=== PATIENT | male | born 1940 | race Two or more races ===

== ENCOUNTER 2016-05-14 09:39 | Inpatient (IN) | payer MEDICARE, OTHER ==
[~2016-05-14] VITALS: Ht 180.3 cm; Wt 78.1 kg
[2016-05-14] MEDS ORDERED: SODIUM CHLORIDE 0.9% 1,000ML IVBOLUS ONE (10:30)
[2016-05-14] MEDS ORDERED: SODIUM CHLORIDE FLUSH 10ML SYR IVF ONE (10:30)
[2016-05-14 11:06] LABS: HEMOGLOBIN 13.9 g/dL (13.7-18.0)
[2016-05-14 11:17] LABS: ASPARTATE AMINO TRANSFERASE 20 U/L (15-37); BLOOD UREA NITROGEN 17 mg/dL (7-18)
[2016-05-14] MEDS ORDERED: OMNIPAQUE 350 MG/ML, 100ML BOTTLE ONE (11:42)
[2016-05-14] MEDS ORDERED: MORPHINE SULFATE 4 MG/ML, 1ML IVPush PRN (16:00)
[2016-05-14] MEDS ORDERED: ONDANSETRON ODT 4 MG PO PRN (16:00)
[2016-05-14] MEDS ORDERED: ACETAMINOPHEN 325 MG TABLET PO PRN (16:00)
[2016-05-14] MEDS ORDERED: ONDANSETRON 2MG/ML, 2ML IVP PRN (16:00)
[2016-05-14] MEDS ORDERED: CEFTRIAXONE PMX 1GM/50ML 50 ML ONE (16:11)
[2016-05-14] MEDS: CEFTRIAXONE PMX 1GM/50ML 50 ML IV ONE ×2 (16:23→16:57)
[2016-05-14] MEDS: LISINOPRIL 5 MG TABLET PO SCH (16:30)
[2016-05-14] MEDS ORDERED: GOLYTELY 4,000ML ORAL.SOL PO ONE (17:30)
[2016-05-14 19:02] VITALS: BP 130/86
[2016-05-14] MEDS: SODIUM CHLORIDE 0.9% 1,000 ML IV SCH (19:52)
[2016-05-14 20:00] VITALS: BP 130/86
[2016-05-14] MEDS: PANTOPRAZOLE 40 MG IV IVP SCH (20:25)
[2016-05-14 23:17] LABS: IS PT STATUS REG ER OR PRE ER? NO
[2016-05-15 00:38] VITALS: BP 94/68
[2016-05-15 03:15] VITALS: BP 116/76
[2016-05-15 04:51] LABS: HEMOGLOBIN 10.6 g/dL (13.7-18.0)
[2016-05-15 04:58] LABS: BLOOD UREA NITROGEN 12 mg/dL (7-18)
[2016-05-15 05:16] LABS: IS PT STATUS REG ER OR PRE ER? NO
[2016-05-15 06:48] VITALS: BP 130/78
[2016-05-15] MEDS: LISINOPRIL 5 MG TABLET PO SCH (08:29)
[2016-05-15] MEDS: FINASTERIDE 5 MG TABLET PO SCH (08:29)
[2016-05-15] MEDS: PANTOPRAZOLE 40 MG IV IVP SCH ×2 (08:30→17:50)
[2016-05-15] MEDS: SODIUM CHLORIDE 0.9% 1,000 ML IV SCH (10:30)
[2016-05-15] MEDS ORDERED: PROPOFOL 10 MG/ML, 20ML ONE (10:41)
[2016-05-15 11:15] LABS: IS PT STATUS REG ER OR PRE ER? NO
[2016-05-15 15:00] VITALS: BP 121/74
[2016-05-15] MEDS: CEFTRIAXONE PMX 1GM/50ML 50 ML IV SCH (16:59)
[2016-05-15 17:08] LABS: IS PT STATUS REG ER OR PRE ER? NO
[2016-05-15 19:14] VITALS: BP 100/62
[2016-05-16 01:11] VITALS: BP 101/63
[2016-05-16 05:47] LABS: HEMOGLOBIN 9.5 g/dL (13.7-18.0)
[2016-05-16 07:38] VITALS: BP 104/65
[2016-05-16] MEDS: PANTOPRAZOLE 40 MG IV IVP SCH ×2 (08:41→17:40)
[2016-05-16] MEDS: LISINOPRIL 5 MG TABLET PO SCH (08:42)
[2016-05-16] MEDS: FINASTERIDE 5 MG TABLET PO SCH (08:42)
[2016-05-16 12:35] VITALS: BP 108/76
[2016-05-16] MEDS: CEFTRIAXONE PMX 1GM/50ML 50 ML IV SCH (17:40)
[2016-05-16 19:49] VITALS: BP 103/69
[2016-05-17 02:35] VITALS: BP 130/85
[2016-05-17 03:59] VITALS: BP 99/61
[2016-05-17] MEDS: PANTOPRAZOLE 40 MG IV IVP SCH (06:07)
[2016-05-17 06:38] LABS: HEMOGLOBIN 9.8 g/dL (13.7-18.0)
[2016-05-17 08:45] VITALS: BP 120/77
[2016-05-17] MEDS ORDERED: LISINOPRIL 5 MG TABLET PO SCH (09:00)
[2016-05-17] MEDS: FINASTERIDE 5 MG TABLET PO SCH (09:00)
[2016-05-17] MEDS ORDERED: CEFDINIR 300 MG CAPSULE PO SCH (09:00)
[2016-05-17 13:32] VITALS: BP 138/79
[2016-05-17] MEDS ORDERED: FINA5TAB4 PO (15:10)
[2016-05-17] MEDS ORDERED: LISI5TAB7 PO (15:10)
[2016-05-17] MEDS ORDERED: CEFD300C2 PO (15:10)
[2016-05-17] MEDS ORDERED: PANTOPROZOLE 40MG TABLET PO SCH (21:00)
== END 2016-05-17 17:59 | disposition home or self-care (01) | DRG 393 ==
LOC: ED 10:38 → EDIP 15:18 → 4EST 18:38
PROVIDERS: ADMIT Internal Medicine; ATTEND Internal Medicine
PROC: 0T9B70Z Drainage of Bladder with Drainage Device, Via Natural or Artificial Opening (ICD-10-PCS; principal; 2016-05-14)
PROC: 0DBM8ZX Excision of Descending Colon, Via Natural or Artificial Opening Endoscopic, Diagnostic (ICD-10-PCS; 2016-05-15)
DX: D12.4 Benign neoplasm of descending colon (principal); K57.91 Diverticulosis of intestine, part unspecified, without perforation or abscess with bleeding; N13.30 Unspecified hydronephrosis; D62 Acute posthemorrhagic anemia; N39.0 Urinary tract infection, site not specified; N40.1 Benign prostatic hyperplasia with lower urinary tract symptoms; K80.20 Calculus of gallbladder without cholecystitis without obstruction; D18.00 Hemangioma unspecified site; I10 Essential (primary) hypertension; N21.0 Calculus in bladder; N32.0 Bladder-neck obstruction; N28.1 Cyst of kidney, acquired; R33.8 Other retention of urine; Z79.899 Other long term (current) drug therapy; F32.9 Major depressive disorder, single episode, unspecified; I35.1 Nonrheumatic aortic (valve) insufficiency; K76.89 Other specified diseases of liver
CPT/HCPCS: 36415; 51702; 74177; 76770; 80048; 80053; 81001; 83605; 83690; 84484; 85025; 85610; 87040; 87086; 88305; 93005; 93306; 96361; 96365; J0696; J2704; Q9967; C9113; J7030

== ENCOUNTER 2016-08-31 11:07 | Day surgery (SDC) | payer MEDICARE ==
[~2016-08-31] VITALS: Ht 182.9 cm; Wt 78.5 kg
[~2016-08-31 11:07] MED LIST: CEFD300C37 PO; FINA5TAB PO; FINA5TAB4 PO; LISI5TAB7 PO; MULT-154 PO
[2016-08-31] MEDS ORDERED: FENTANYL PF 250 MCG/5ML ONE (11:35)
[2016-08-31] MEDS ORDERED: MIDAZOLAM 1 MG/ML, 2ML ONE (11:35)
[2016-08-31] MEDS ORDERED: LACTATED RINGERS 1,000 ML IV SCH (11:42)
[2016-08-31 12:24] VITALS: BP 132/86
[2016-08-31] MEDS ORDERED: FENTANYL PF 100 MCG/2ML IV PRN (13:00)
[2016-08-31] MEDS ORDERED: hydrALAzine 20 MG/ML, 1ML IV PRN (13:00)
[2016-08-31] MEDS ORDERED: METOCLOPRAMIDE 5 MG/ML, 2ML IV PRN (13:00)
[2016-08-31] MEDS ORDERED: OXYcodone 5 MG/5 ML ORAL.SOL UDC PO PRN (13:00)
[2016-08-31] MEDS ORDERED: MEPERIDINE/PF 25MG/0.5ML IVPush PRN (13:00)
[2016-08-31] MEDS ORDERED: LABETALOL 5MG/ML, 20ML IV PRN (13:00)
[2016-08-31] MEDS ORDERED: HYDROmorphone 1 MG/ML, 1ML IV PRN (13:00)
[2016-08-31] MEDS ORDERED: PROMETHAZINE 25 MG/ML, 1ML IV PRN (13:00)
[2016-08-31] MEDS ORDERED: ONDANSETRON 2MG/ML, 2ML IVPush PRN (13:00)
== END 2016-08-31 13:40 | disposition home or self-care (01) ==
LOC: OUT 11:07
PROVIDERS: ATTEND Urology
DX: Z02.9 Encounter for administrative examinations, unspecified (principal)
CPT/HCPCS: J2250; J3010

== ENCOUNTER 2016-09-07 15:02 | Observation (INO) | payer MEDICARE ==
[~2016-09-07] VITALS: Ht 180.3 cm; Wt 77.0 kg
[2016-09-07] MEDS: LACTATED RINGERS 1,000 ML IV SCH ×2 (04:00→15:43)
[2016-09-07 14:51] VITALS: BP 144/94
[2016-09-07] MEDS ORDERED: PLEASE ENTER HEIGHT AND WEIGHT MC SCH (15:30)
[2016-09-07] MEDS ORDERED: CEFU250T66 PO (16:19)
[2016-09-07] MEDS ORDERED: MIDAZOLAM 1 MG/ML, 2ML ONE (17:15)
[2016-09-07] MEDS ORDERED: FENTANYL PF 250 MCG/5ML ONE (17:15)
[2016-09-07] MEDS ORDERED: CEFTRIAXONE 1,000 MG ONE ×2 (18:04→18:10)
[2016-09-07] MEDS ORDERED: ROCURONIUM 10 MG/ML ONE (18:10)
[2016-09-07] MEDS ORDERED: PROPOFOL 10 MG/ML, 20ML ONE (18:10)
[2016-09-07] MEDS ORDERED: ONDANSETRON 2MG/ML, 2ML ONE (18:10)
[2016-09-07] MEDS ORDERED: NEOSTIGMINE 1 MG/ML, 10ML ONE (18:10)
[2016-09-07] MEDS ORDERED: GLYCOPYRROLATE 0.2MG/1ML ONE (18:10)
[2016-09-07] MEDS ORDERED: METOPROLOL 1 MG/ML, 5ML IV PRN (18:30)
[2016-09-07] MEDS ORDERED: ALBUTEROL SULFATE 2.5 MG/3 ML NPPB PRN (18:30)
[2016-09-07] MEDS ORDERED: OXYcodone 5 MG/5 ML ORAL.SOL UDC PO PRN (18:30)
[2016-09-07] MEDS ORDERED: hydrALAzine 20 MG/ML, 1ML IV PRN (18:30)
[2016-09-07] MEDS ORDERED: HYDROmorphone 1 MG/ML, 1ML IV PRN (18:30)
[2016-09-07] MEDS ORDERED: FENTANYL PF 100 MCG/2ML IV PRN (18:30)
[2016-09-07] MEDS ORDERED: ONDANSETRON 2MG/ML, 2ML IVPush PRN (18:30)
[2016-09-07] MEDS ORDERED: LABETALOL 5MG/ML, 20ML IV PRN (18:30)
[2016-09-07] MEDS ORDERED: EPHEDRINE 50 MG/ML, 1ML IVPush PRN (18:30)
[2016-09-07] MEDS ORDERED: ACETAMINOPHEN 325 MG TABLET PO PRN (18:30)
[2016-09-07] MEDS ORDERED: ACETAMINOPHEN 650 MG/20.3 ML UDC ONE (19:36)
[2016-09-07] MEDS ORDERED: OXYcodone 5 MG/5 ML ORAL.SOL UDC ONE (19:37)
[2016-09-07] MEDS ORDERED: morphine SULFATE 10 MG/ML, 1ML IV PRN (21:30)
[2016-09-07] MEDS ORDERED: ONDANSETRON 2MG/ML, 2ML IV PRN (21:30)
[2016-09-07] MEDS ORDERED: OPIUM/BELLADONNA SUPP.RECT 16.2-30 MG PR PRN (21:30)
[2016-09-07] MEDS ORDERED: LACTATED RINGERS 1,000 ML IV SCH (21:30)
[2016-09-07] MEDS ORDERED: HYDROcodone/APAP 5/325 TABLET PO PRN (21:30)
[2016-09-08] MEDS: LACTATED RINGERS 1,000 ML IV SCH ×3 (02:07→17:53)
[2016-09-08 02:40] VITALS: BP 109/69
[2016-09-08 07:33] VITALS: BP 137/84
[2016-09-08 13:54] VITALS: BP 145/75
[2016-09-08 19:07] VITALS: BP 135/74
[2016-09-09 01:45] VITALS: BP 124/78
[2016-09-09] MEDS: LACTATED RINGERS 1,000 ML IV SCH ×2 (03:30→07:57)
[2016-09-09 08:42] VITALS: BP 117/68
[2016-09-09] MEDS ORDERED: CEFTRIAXONE PMX 1GM/50ML 50 ML IV ONE (14:30)
[2016-09-09] MEDS ORDERED: DOCU-30 PO (16:41)
[2016-09-09] MEDS ORDERED: HYDR-3240 PO (16:41)
[2016-09-09] MEDS ORDERED: LIDOCAINE GEL 2%, 5ML TP ONE (17:00)
== END 2016-09-09 18:10 | disposition home or self-care (01) ==
LOC: OR 15:02 → 4NOR 20:20 → OR 22:41 → 4NOR 22:42
PROVIDERS: ADMIT Urology; ATTEND Urology
DX: N40.1 Benign prostatic hyperplasia with lower urinary tract symptoms (principal); N21.0 Calculus in bladder; R33.8 Other retention of urine; I10 Essential (primary) hypertension
CPT/HCPCS: 36415; 52318; 52630; 82360; 85014; 85018; 88300; 88305; 96365; G0378; J0696; J2405; J2704; J2710; J3010; J7120; J2250; J3490